=== PATIENT | female | born 1930 | race Caucasian/White ===

== ENCOUNTER → 2016-10-12 | Outpatient (CLI) | payer MEDICARE ==
[~2016-10-12] MED LIST: ATOR20TA42 PO; B-COTAB41 PO; CALC500 PO; DIGO0.12 PO; LORTA5 PO; NIAC500T5 PO; RIVA15 PO; SOTA80TA PO; SULA8.5T PO; VITA500C PO
[2016-10-12 09:21] LABS: HEMATOCRIT 43.1 % (35.0-46.0); MEAN CELL VOLUME 84.3 FL (80.0-100.0); MEAN CORPUSCULAR HEMOGLOBIN 28.1 PG (27.0-34.0); MEAN CORPUSCULAR HGB CONC 33.4 % (32.0-36.0); PLATELET COUNT 230 TH/MM3 (150-450); RED BLOOD COUNT 5.11 MIL/MM3 (4.00-5.30); RED CELL DISTRIBUTION WIDTH 14.2 % (11.6-17.2); REVIEW FLAG FINAL
[2016-10-12 09:42] LABS: ALKALINE PHOSPHATASE 109 U/L (45-117); ALT (GPT) 14 U/L (10-53); ANION GAP 7 MEQ/L (5-15); AST (GOT) 16 U/L (15-37); BICARBONATE 28.8 MEQ/L (21.0-32.0); BLOOD UREA NITROGEN 21 MG/DL (7-18); CHLORIDE 103 MEQ/L (98-107); GLOMERULAR FILTRATION RATE 42 ML/MIN (>89); GLUCOSE,FASTING 112 MG/DL (74-99); HDL CHOLESTEROL 22.8 MG/DL (40.0-60.0); POTASSIUM 4.1 MEQ/L (3.5-5.1); SODIUM (NA) 139 MEQ/L (136-145); TOTAL BILIRUBIN ADULT 0.6 MG/DL (0.2-1.0)
[2016-10-12 09:50] LABS: WESTERGREN SEDIMENTATION RATE 8 mm/hr (0-30)
[2016-10-12 12:19] LABS: RHEUMATOID FACTOR TRIGGER LESS THAN 10.0 IU/ML (0.0-14.9)
[2016-10-12 13:48] LABS: ANA SCREEN POS (NEG)
== END ==
LOC: PLAB 07:05
PROVIDERS: ATTEND Internal Medicine Interventional Cardiology
DX: R53.83 Other fatigue (principal); I11.9 Hypertensive heart disease without heart failure; I71.4 Abdominal aortic aneurysm, without rupture; M79.1 Myalgia
CPT/HCPCS: 36415; 80053; 80061; 85027; 85652; 86038; 86039; 86430

== ENCOUNTER → 2017-08-10 | Outpatient (CLI) | payer MEDICARE ==
[2017-08-10 09:42] LABS: HEMATOCRIT 31.2 % (35.0-46.0); HEMOGLOBIN 10.4 GM/DL (11.6-15.3); MEAN CELL VOLUME 86.6 FL (80.0-100.0); MEAN CORPUSCULAR HGB CONC 33.5 % (32.0-36.0); MEAN PLATELET VOLUME 8.1 FL (7.0-11.0); PLATELET COUNT 272 TH/MM3 (150-450); RED CELL DISTRIBUTION WIDTH 14.6 % (11.6-17.2); WHITE BLOOD COUNT 7.2 TH/MM3 (4.0-11.0)
[2017-08-10 10:10] LABS: BICARBONATE 25.9 MEQ/L (21.0-32.0); BLOOD UREA NITROGEN 18 MG/DL (7-18); CALCIUM 8.2 MG/DL (8.5-10.1); CHLORIDE 107 MEQ/L (98-107); SODIUM (NA) 140 MEQ/L (136-145)
[2017-08-10 10:16] LABS: ALKALINE PHOSPHATASE 96 U/L (45-117); ALT (GPT) 14 U/L (10-53); AST (GOT) 18 U/L (15-37); CHOLESTEROL 149 MG/DL (120-200); CHOLESTEROL/ HDL RATIO 7.26 RATIO; CREATININE 1.25 MG/DL (0.50-1.00); GLOMERULAR FILTRATION RATE 40 ML/MIN (>89); GLUCOSE,FASTING 98 MG/DL (74-99); HDL CHOLESTEROL 20.5 MG/DL (40.0-60.0); TOTAL BILIRUBIN ADULT 0.4 MG/DL (0.2-1.0); TOTAL PROTEIN 7.6 GM/DL (6.4-8.2); TRIGLYCERIDES 499 MG/DL (42-150)
[2017-08-10 10:37] LABS: WESTERGREN SEDIMENTATION RATE 72 mm/hr (0-30)
== END ==
LOC: PLAB 06:53
PROVIDERS: ATTEND Internal Medicine Interventional Cardiology
DX: R53.83 Other fatigue (principal); I48.0 Paroxysmal atrial fibrillation; I11.9 Hypertensive heart disease without heart failure; I49.5 Sick sinus syndrome; R07.9 Chest pain, unspecified; F17.210 Nicotine dependence, cigarettes, uncomplicated
CPT/HCPCS: 36415; 80053; 80061; 85027; 85652

== ENCOUNTER → 2017-08-31 | Outpatient (CLI) | payer MEDICARE ==
[2017-08-31 10:17] LABS: AUTOMATED NEUTROPHIL # 4.4 TH/MM3 (1.8-7.7); BASOPHIL # 0.1 TH/MM3 (0-0.2); BASOPHIL % 0.8 % (0.0-2.0); EOSINOPHIL # 0.2 TH/MM3 (0-0.4); EOSINOPHIL % 2.2 % (0.0-4.0); LYMPH % 32.2 % (9.0-44.0); LYMPHOCYTE # 2.6 TH/MM3 (1.0-4.8); MEAN CELL VOLUME 82.9 FL (80.0-100.0); MEAN CORPUSCULAR HEMOGLOBIN 27.6 PG (27.0-34.0); MEAN CORPUSCULAR HGB CONC 33.3 % (32.0-36.0); MONO % 10.5 % (0.0-8.0); MONOCYTE # 0.9 TH/MM3 (0-0.9); NEUT % 54.3 % (16.0-70.0); PLATELET COUNT 362 TH/MM3 (150-450); RED BLOOD COUNT 3.99 MIL/MM3 (4.00-5.30); RED CELL DISTRIBUTION WIDTH 14.6 % (11.6-17.2); WHITE BLOOD COUNT 8.2 TH/MM3 (4.0-11.0)
[2017-08-31 10:36] LABS: WESTERGREN SEDIMENTATION RATE 49 mm/hr (0-30)
== END ==
LOC: PLAB 06:47
PROVIDERS: ATTEND Family Medicine
DX: D64.9 Anemia, unspecified (principal); R91.8 Other nonspecific abnormal finding of lung field; R53.83 Other fatigue; R10.32 Left lower quadrant pain; K64.4 Residual hemorrhoidal skin tags
CPT/HCPCS: 36415; 85025; 85652

== ENCOUNTER 2018-06-23 11:32 | Inpatient (IN) ==
[2018-06-23 12:14] LABS: Baso # (Auto) 0.1 th/mm3 (0.0-0.2); Baso % (Auto) 0.6 % (0.0-2.0); Eos # (Auto) 0.1 th/mm3 (0.0-0.4); Eos % (Auto) 1.1 % (0.0-4.0); Hemoglobin 13.2 gm/dL (11.6-15.3); Lymph # (Auto) 1.6 th/mm3 (1.0-4.8); Lymph % (Auto) 18.4 % (9.0-44.0); Mean Corpuscular HGB Conc 33.8 % (32.0-36.0); Mean Corpuscular Hemoglobin 28.5 pg (27.0-34.0); Mean Corpuscular Volume 84.2 fL (80.0-100.0); Mean Platelet Volume 8.4 fL (7.0-11.0); Mono % (Auto) 10.9 % (0.0-8.0); Platelet Count 296 th/mm3 (150-450); Red Blood Count 4.63 mil/mm3 (4.00-5.30); Red Cell Distribution Width 17.3 % (11.6-17.2); White Blood Count 8.7 th/mm3 (4.0-11.0)
[2018-06-23 12:24] LABS: INR 1.2 Ratio; Prothrombin Time 11.7 sec (9.8-11.6)
[2018-06-23 12:28] LABS: Activated Partial Thrombo Time 26.7 sec (23.4-31.7)
[2018-06-23 12:31] LABS: Alanine Aminotransferase 28 U/L (10-53); Albumin 2.1 g/dL (3.4-5.0); Anion Gap 5 meq/L (5-15); Blood Urea Nitrogen 14 mg/dL (7-18); Calcium 6.6 mg/dL (8.5-10.1); Carbon Dioxide 22.8 meq/L (21.0-32.0); Chloride 110 meq/L (98-107); Glomerular Filtration Rate 65 mL/min (>89); Glucose,Random 109 mg/dL (74-106); Sodium 138 meq/L (136-145)
--- NOTE | 2018-06-23 12:31 | XR ---
EXAM DATE: 06/23/2018 12:27 PM EST AGE/SEX: 87 years / Female INDICATIONS: Shortness of breath post fall. CLINICAL DATA: This is the patient's initial encounter. Patient reports that signs and symptoms have been present for 2 weeks and indicates a pain score of 5/10. MEDICAL/SURGICAL HISTORY: None. Pacemaker. COMPARISON: [facility], XR CHEST PA AND LAT, 07/21/2015. . FINDINGS: Diffuse interstitial prominence with patchy bilateral lower lobe airspace disease which appears more confluent in the left lower lung zone. There is also a small left-sided pleural effusion. Dual-lead p acemaker in stable position. Cardiomediastinal contours are within normal limits. Remainder of the ex am is unchanged. CONCLUSION: 1. Chronic diffuse interstitial lung disease with superimposed bilateral lower lobe patchy airspace disease and small left pleural effusion. Electronically signed by: Emerson De La O MD 06/23/2018 12:30 PM EST
[2018-06-23 12:33] LABS: Alkaline Phosphatase 80 U/L (45-117); Aspartate Aminotransferase 54 U/L (15-37); Creatine Kinase 132 U/L (26-192); Potassium 4.9 meq/L (3.5-5.1); Total Protein 6.5 g/dL (6.4-8.2)
[2018-06-23 13:00] LABS: Creatine Kinase MB 1.1 ng/mL (0.5-3.6)
[2018-06-23] MEDS ORDERED: Azithromycin Inj 500 MG in Sodium Chlor 0.9% Inj 250 ML IV.SIG ONE (13:34)
[2018-06-23] MEDS ORDERED: Calcium Gluconate Inj 1 GM in Sodium Chlor 0.9% Inj 100 ML IV.SIG ONE (14:00)
--- NOTE | 2018-06-23 15:25 | CT ---
EXAM DATE: 06/23/2018 3:22 PM EST AGE/SEX: 87 years / Female INDICATIONS: Dizziness today. CLINICAL DATA: This is the patient's initial encounter. Patient reports that signs and symptoms have been present for 1 day and indicates a pain score of 0/10. MEDICAL/SURGICAL HISTORY: Chronic obstructive pulmonary disease. None. RADIATION DOSE: 46.51 CTDI (mGy) COMPARISON: [facility], CT BRAIN W/O CONTRAST, 07/26/2012. . TECHNIQUE: CT of the head without contrast. Using automated exposure control and adjustment of the mA and/or kV according to patient size, radiation dose was kept as low as reasonably achievable to ob tain optimal diagnostic quality images. DICOM format image data is available electronically for revi ew and comparison. FINDINGS: Cerebrum: Moderate diffuse cerebral atrophy. The ventricles are normal for degree of atrophy. Small right basal ganglia lacunar infarct. No evidence of midline shift, mass lesion, hemorrhage or acute i nfarction. No extraaxial fluid collections are seen. Posterior Fossa: Mild diffuse cerebellar atrophy. Brainstem is intact. The 4th ventricle is midline. The cerebellopontine angle is unremarkable. Extracranial: The visualized portion of the orbits is intact. Skull: The calvaria is intact. No evidence of skull fracture. CONCLUSION: 1. Senescent changes with remote right basal ganglia lacunar infarct. 2. No acute intracranial abnormality. . Electronically signed by: Emerson De La O MD 06/23/2018 3:24 PM EST
--- NOTE | 2018-06-23 15:35 | CT ---
EXAM DATE: 06/23/2018 3:25 PM EST AGE/SEX: 87 years / Female INDICATIONS: Shortness of breath. CLINICAL DATA: This is the patient's initial encounter. Patient reports that signs and symptoms have been present for 1 day and indicates a pain score of 0/10. MEDICAL/SURGICAL HISTORY: Chronic obstructive pulmonary disease. None. RADIATION DOSE: 6.86 CTDI (mGy) COMPARISON: C, CHEST 1V SINGLE AP, 06/23/2018. . TECHNIQUE: Volumetric scanning was performed using a multi-row detector CT scanner during bolus infu cynthia of 70 ml Omnipaque 350 (iohexol) nonionic water-soluble contrast as a single exam dose. The mariana a was post processed with a variety of visualization algorithms including full volume maximum intensi ty projection and sliding thin slab reformation. Using automated exposure control and adjustment of the mA and/or kV according to patient size, radiation dose was kept as low as reasonably achievable t o obtain optimal diagnostic quality images. DICOM format image data is available electronically for review and comparison. FINDINGS: Pulmonary Arteries: The pulmonary arteries are demonstrated through the proximal segmental level wit hout evidence for intraluminal filling defect to suggest pulmonary artery embolism. More distally, th e pulmonary arteries are suboptimally visualized. Lung: Diffuse interstitial prominence with prominent centrilobular emphysema bilaterally. Airspace c onsolidation in the lower lobes bilaterally more prominently on the left. Pleura: Small right and moderate left pleural effusions. Mediastinum: Cardiomegaly without significant pericardial effusion. Dual-lead pacemaker in place. Co ronary artery calcifications. Subcentimeter mediastinal and hilar nodes.. Osseous Structures: Degenerative changes of the thoracic spine. Other: Visulaized upper abdomen is unremarkable. CONCLUSION: 1. No evidence for pulmonary artery embolism through the proximal segmental level. More distal segme ntal and subsegmental branches are suboptimally visualized. 2. Chronic interstitial lung disease with prominent centrilobular emphysema. 3. Small right and moderate left pleural effusions with associated airspace consolidation in the low er lobes. This is somewhat more confluent in the left lower lobe. Consider aspiration in the appropri ate clinical setting. 4. Cardiomegaly. 5. Coronary artery calcifications. Electronically signed by: Emerson De La O MD 06/23/2018 3:34 PM EST
--- NOTE | 2018-06-23 16:35 | ED ---
HPI General Chief complaint: Shortness of Breath/Dyspnea Stated complaint: SOB Time Seen by Provider: 06/23/18 11:51 Source: patient Mode of arrival: EMS Limitations: no limitations History of Present Illness HPI narrative: Patient is an 87 year old female who comes in complaining of shortness of breath. She drove here from [place] last week and has been having shortness of breath since then. She does have a history of COPD, but does not wear oxygen at home. She has been increasingly short of breath and had some dizziness. She fell on Monday due to the dizziness and has had pain to her left ribs. She has had some cough, she denies nausea or vomiting. She denies any fevers. Chest pain. She does have a history of blood clots, she does take Xarelto. She reports compliance with her medications. She says that taking deep breaths hurts her left lateral ribs. Severity is moderate. Related Data Home Medications Medication Instructions Recorded Confirmed atorvastatin 20 mg PO DAILY 06/23/18 06/23/18 digoxin 0.125 mg PO EVERY OTHER DAY 06/23/18 06/23/18 latanoprost 1 drp OPHTHALMIC (EYE) QPM 06/23/18 06/23/18 nisoldipine [Sular] 8.5 mg PO DAILY 06/23/18 06/23/18 nisoldipine [Sular] 17 mg PO DAILY 06/23/18 06/23/18 rivaroxaban [Xarelto] 15 mg PO QPM 06/23/18 06/23/18 sotalol 80 mg PO Q12H 06/23/18 06/23/18 Allergies Allergy/AdvReac Type Severity Reaction Status Date / Time ciprofloxacin AdvReac Unknown NAUSEA Verified 06/23/18 14:20 MRI PRECAUTION AdvReac Severe PACEMAKER Uncoded 10/11/14 14:29 Review of Systems ROS: all other systems reviewed are negative Constitutional Denies chills and Denies fever(s) ENT Reports dizziness Cardiovascular Reports dyspnea Respiratory Reports cough and Reports dyspnea Gastrointestinal Denies nausea and Denies vomiting Musculoskeletal Denies myalgias and Denies arthralgias Integumentary/Breasts Denies sores and Denies wounds Neurologic Denies focal weakness and Denies numbness PMFSH Medical History Medical History COPD (chronic obstructive pulmonary disease) (Acute) History of pulmonary embolism (Acute) Hypertension (Acute) Family History Family History Other Osteoarthritis Social History Social History Smoking Status: Former smoker How Often Do You Have a Drink Containing Alcohol: Unable to Obtain Recent Travel in [facility] within the Last 8 Weeks: No Recent Out of Country Travel within the Last 8 Weeks: No Immunization History Tetanus Immunization: Unsure Exam Narrative Exam Narrative: GENERAL: Awake and alert, in mild respiratory distress. SKIN: Focused skin assessment warm/dry. HEAD: Atraumatic. Normocephalic. EYES: Pupils equal and round. No scleral icterus. No injection or drainage. ENT: No nasal bleeding or discharge. Mucous membranes pink and moist. NECK: Trachea midline. No JVD. CARDIOVASCULAR: Regular rate and rhythm. No murmur appreciated. Tender to palpation of the left lateral chest wall. RESPIRATORY: No accessory muscle use. Crackles at both lung bases. Breath sounds equal bilaterally. GASTROINTESTINAL: Abdomen soft, non-tender, nondistended. MUSCULOSKELETAL: No obvious deformities. No clubbing. No cyanosis. 1+ edema of lower extremities. NEUROLOGICAL: Awake and alert. No obvious cranial nerve deficits. Motor grossly within normal limits. Normal speech. PSYCHIATRIC: Appropriate mood and affect; insight and judgment normal. Course Initial Documented Vital Signs Temperature 98.1 F 06/23/18 11:37 Pulse Rate 89 06/23/18 11:37 Respiratory Rate 28 H 06/23/18 11:37 Blood Pressure 182/83 H 06/23/18 11:37 Pulse Oximetry 94 L 06/23/18 11:37 Last Documented Vital Signs Temperature 98.1 F 06/23/18 11:37 Pulse Rate 78 06/23/18 17:01 Respiratory Rate 25 H 06/23/18 17:01 Blood Pressure 159/78 H 06/23/18 17:01 Pulse Oximetry 94 L 06/23/18 17:01 Medical Decision Making MDM Narrative Medical decision making narrative: Patient is an 87-year-old female comes in complaining of shortness of breath. Exam was of both lung bases, tenderness to the chest wall. Patient has an oxygen saturation of 85% on arrival on room air. IV established, labs sent. Patient given 1 DuoNeb. She did receive a DuoNeb and albuterol treatment as well as of 125 mg of Solu-Medrol by EMS prior to arrival. CTA of the chest performed shows bilateral pleural effusions with a consolidation on the left. Given Rocephin and azithromycin as well as a dose of Lasix. Patient's oxygen saturation improved on nasal cannula. She will be admitted for further management. Medical Screen Exam Complete: Yes Emergency Medical Condition: Yes Differential Diagnosis Differential Diagnosis: COPD exacerbation versus pneumonia versus rib fracture versus pneumothorax versus PE Medical Records Medical records reviewed: Yes I reviewed the patient's medical records. Lab Data Lab results reviewed: Yes I reviewed the patient's lab results. Result diagrams: 06/23/18 12:00 06/23/18 12:00 Lab Results 06/23/18 06/23/18 06/23/18 Range/Units 12:00 12:00 12:00 WBC 8.7 (4.0-11.0) th/mm3 RBC 4.63 (4.00-5.30) mil/mm3 Hgb 13.2 (11.6-15.3) gm/dL Hct 39.0 (35.0-46.0) % MCV 84.2 (80.0-100.0) fL MCH 28.5 (27.0-34.0) pg MCHC 33.8 (32.0-36.0) % RDW 17.3 H (11.6-17.2) % Plt Count 296 (150-450) th/mm3 MPV 8.4 (7.0-11.0) fL Neut % (Auto) 69.0 (16.0-70.0) % Lymph % (Auto) 18.4 (9.0-44.0) % [place] % (Auto) 10.9 H (0.0-8.0) % Eos % (Auto) 1.1 (0.0-4.0) % Baso % (Auto) 0.6 (0.0-2.0) % Neut # (Auto) 6.0 (1.8-7.7) th/mm3 Lymph # (Auto) 1.6 (1.0-4.8) th/mm3 [place] # (Auto) 1.0 H (0.0-0.9) th/mm3 Eos # (Auto) 0.1 (0.0-0.4) th/mm3 Baso # (Auto) 0.1 (0.0-0.2) th/mm3 WBC Differential . Differential Comment Auto diff final PT 11.7 H (9.8-11.6) sec INR 1.2 Ratio APTT 26.7 (23.4-31.7) sec Sodium 138 (136-145) meq/L Potassium 4.9 (3.5-5.1) meq/L Chloride 110 H (98-107) meq/L Carbon Dioxide 22.8 (21.0-32.0) meq/L Anion Gap 5 (5-15) meq/L BUN 14 (7-18) mg/dL Creatinine 0.83 (0.50-1.00) mg/dL Estimated GFR 65 L (>89) mL/min Random Glucose 109 H (74-106) mg/dL Calcium 6.6 L* (8.5-10.1) mg/dL Prot Corrected Calcium 6.9 L* (8.5-10.1) mg/dL Total Bilirubin 0.4 (0.2-1.0) mg/dL AST 54 H (15-37) U/L ALT 28 (10-53) U/L Alkaline Phosphatase 80 (45-117) U/L Total Creatine Kinase 132 (26-192) U/L CK-MB (CK-2) 1.1 (0.5-3.6) ng/mL Troponin I Less than 0.02 L (0.02-0.05) ng/mL B-Natriuretic Peptide (0-100) pg/mL Total Protein 6.5 (6.4-8.2) g/dL Albumin 2.1 L (3.4-5.0) g/dL 06/23/18 Range/Units 12:00 WBC (4.0-11.0) th/mm3 RBC (4.00-5.30) mil/mm3 Hgb (11.6-15.3) gm/dL Hct (35.0-46.0) % MCV (80.0-100.0) fL MCH (27.0-34.0) pg MCHC (32.0-36.0) % RDW (11.6-17.2) % Plt Count (150-450) th/mm3 MPV (7.0-11.0) fL Neut % (Auto) (16.0-70.0) % Lymph % (Auto) (9.0-44.0) % [place] % (Auto) (0.0-8.0) % Eos % (Auto) (0.0-4.0) % Baso % (Auto) (0.0-2.0) % Neut # (Auto) (1.8-7.7) th/mm3 Lymph # (Auto) (1.0-4.8) th/mm3 [place] # (Auto) (0.0-0.9) th/mm3 Eos # (Auto) (0.0-0.4) th/mm3 Baso # (Auto) (0.0-0.2) th/mm3 WBC Differential Differential Comment PT (9.8-11.6) sec INR Ratio APTT (23.4-31.7) sec Sodium (136-145) meq/L Potassium (3.5-5.1) meq/L Chloride (98-107) meq/L Carbon Dioxide (21.0-32.0) meq/L Anion Gap (5-15) meq/L BUN (7-18) mg/dL Creatinine (0.50-1.00) mg/dL Estimated GFR (>89) mL/min Random Glucose (74-106) mg/dL Calcium (8.5-10.1) mg/dL Prot Corrected Calcium (8.5-10.1) mg/dL Total Bilirubin (0.2-1.0) mg/dL AST (15-37) U/L ALT (10-53) U/L Alkaline Phosphatase (45-117) U/L Total Creatine Kinase (26-192) U/L CK-MB (CK-2) (0.5-3.6) ng/mL Troponin I (0.02-0.05) ng/mL B-Natriuretic Peptide 468 H (0-100) pg/mL Total Protein (6.4-8.2) g/dL Albumin (3.4-5.0) g/dL Imaging Data Radiologist's impression: Chest CTA 06/23/18 11:52 CONCLUSION: 1. No evidence for pulmonary artery embolism through the proximal segmental level. More distal segmental and subsegmental branches are suboptimally visualized. 2. Chronic interstitial lung disease with prominent centrilobular emphysema. 3. Small right and moderate left pleural effusions with associated airspace consolidation in the lower lobes. This is somewhat more confluent in the left lower lobe. Consider aspiration in the appropriate clinical setting. 4. Cardiomegaly. 5. Coronary artery calcifications. Chest X-Ray 06/23/18 11:52 CONCLUSION: 1. Chronic diffuse interstitial lung disease with superimposed bilateral lower lobe patchy airspace disease and small left pleural effusion. Head CT 06/23/18 11:52 CONCLUSION: 1. Senescent changes with remote right basal ganglia lacunar infarct. 2. No acute intracranial abnormality. . ECG Data EKG Prior to Arrival: No Attestation: I personally reviewed and interpreted this ECG as follows: Discharge Plan Discharge Disposition Patient Disposition: 30 Still Patient Discharge Condition Condition: Stable Discharge Details Diagnosis: Community acquired pneumonia, Pleural effusion, Hypoxia Physicians Team ED Provider: Bailey Quintero Primary Care Provider: Lia Funes Attending Provider: Luke Fierro Discharge Interventions Interventions: Vital Signs Last Done: 06/23/18 17:01 Status ED Status: Admitted Patient
[2018-06-23] MEDS: Sod Chloride 0.9% Inj 1,000 ML IV.CONT SCH (17:37)
[2018-06-23] MEDS ORDERED: Artificial Tears Opth Drops 15 ML Bottle EACH EYE PRN (17:44)
--- NOTE | 2018-06-23 17:55 | P.HPIM ---
History of Present Illness Primary Care Physician: Lia Funes MD History of Present Illness: Mrs. Cochran is an 87-year-old female. She comes in the hospital secondary to respiratory distress. This is been a gradual onset over the past week. [place] Prior history of PE is present but CTA shows no evidence of clot. She does report [place] she had bronchitis and was prescribed cefuroxime which she has been taking. Tonight she has evidence of bilateral lower lobe consolidation suggestive of pneumonia. Additionally she has a left-sided pleural effusion which is moderate and a small right pleural effusion. No evidence of lung masses. Hypoxia was present on arrival but with oxygen she is maintaining her oxygen saturations in the 90s. No other complaints. Inpatient Certification: I certify that the inpatient services were ordered in accordance with Medicare regulations governing the order. This includes certification that hospital inpatient services are reasonable and necessary and in the case of services not specified as inpatient-only under 42 CFR 419.22(n), that they are appropriately provided as inpatient services in accordance to with the 2-midnight benchmark under 43 CFR 412.3(e) Estimated Total Length of Stay (Days): 3 Plans for Post Hospital Care: Home Review of Systems Constitutional: No fevers, no chills no night sweats, no fatigue, no weakness Eyes: No eye pain, no blurry vision, no loss of vision ENT: No sore throat, no ear pain, no rhinorrhea Cardiovascular: No chest pain, no tachycardia, no palpitations, no syncope Respiratory: No wheezing, no cough, shortness of breath Gastrointestinal: No abdominal pain, no black tarry stools, no bright red blood per rectum, no vomiting, no diarrhea Musculoskeletal: No joint pain, no muscle cramps, no stiffness Integumentary: No rash, no ulcers, no drainage Neurologic: No sensory loss, no loss of motor function, no dizziness Psychiatric: No behavioral changes, no hallucinations, no suicidal ideations [facility] - History History Provided By: Patient, Medical Record - Medical History Medical History: Medical History (Last Updated 06/23/18 @ 17:50 by Luke Fierro MD) COPD (chronic obstructive pulmonary disease) History of pulmonary embolism Hypertension - Family History Family History: Family History (Last Updated 06/23/18 @ 17:51 by Luke Fierro MD) Other Osteoarthritis - Tobacco History Smoking Status: Former smoker - Alcohol History How Often Do You Have a Drink Containing Alcohol: Unable to Obtain - Travel History Recent Travel in the [place] Within the Last 8 Weeks: No Recent Travel Out of the Country Within the Last 8 Weeks: No - Immunization History Tetanus Immunization: Unsure Medications and Allergies Active Medications: Active Medications Acetaminophen (Tylenol) 650 mg PO Q4H PRN PRN Reason: Temp > 100.4 Hydrocodone Bitart/Acetaminophen ([place] 10/325) 1 tab PO Q4H PRN PRN Reason: Pain 7 to 10 Hydrocodone Bitart/Acetaminophen ([place] 5/325) 1 tab PO Q4H PRN PRN Reason: Pain 3 to 6 Al Hydroxide/Mg Hydroxide (Milk Of Magnpenelope Liq) 30 ml PO Q12H PRN PRN Reason: Mild Constipation Artificial Tears (Tears Naturale Opth Drops) 1 drop EACH EYE Q4H PRN PRN Reason: Dry Eyes Atorvastatin Calcium (Lipitor) 20 mg PO DAILY [facility] Digoxin (Lanoxin) 125 mcg PO EVERY OTHER DAY [facility] Azithromycin 250 mg/ Sodium (Chloride) 250 mls @ 250 mls/hr IV.SIG Q24H [facility] Ceftriaxone Sodium 1,000 mg/ (Sodium Chloride) 100 mls @ 200 mls/hr IV.SIG Q24H [facility] Sodium Chloride (Ns Inj) 1,000 mls @ 75 mls/hr IV.CONT .[id number] [facility] Last Admin: 06/23/18 17:37 Dose: Not Given Lactobacillus Acidophilus (Lactinex) 1 tab PO TID [facility] Latanoprost (Xalatan 0.005% Opth Drops) drop EACH EYE QPM [facility] Non-Formulary Medication (Nisoldipine [Sular]) 8.5 mg PO DAILY@1100 [facility] Non-Formulary Medication (Nisoldipine [Sular]) 17 mg PO DAILY@0800,2000 [facility] Ondansetron HCl (Zofran Inj) 4 mg IV.PUSH Q6H PRN PRN Reason: NAUSEA OR VOMITING Rivaroxaban (Xarelto) 15 mg PO QPM [facility] Sotalol HCl (Betapace) 80 mg PO Q12H [facility] Allergies Allergy/AdvReac Type Severity Reaction Status Date / Time ciprofloxacin AdvReac Unknown NAUSEA Verified 06/23/18 14:20 MRI PRECAUTION AdvReac Severe PACEMAKER Uncoded 10/11/14 14:29 Home Medications Medication Instructions Recorded Confirmed Type atorvastatin 20 mg PO DAILY 06/23/18 06/23/18 History digoxin 0.125 mg PO EVERY OTHER DAY 06/23/18 06/23/18 History latanoprost 1 drp OPHTHALMIC (EYE) QPM 06/23/18 06/23/18 History nisoldipine [Sular] 8.5 mg PO DAILY 06/23/18 06/23/18 History nisoldipine [Sular] 17 mg PO DAILY 06/23/18 06/23/18 History rivaroxaban [Xarelto] 15 mg PO QPM 06/23/18 06/23/18 History sotalol 80 mg PO Q12H 06/23/18 06/23/18 History Exam Vital signs: Vital Signs 06/23/18 11:37 06/23/18 12:14 06/23/18 12:28 Temperature 98.1 F Pulse Rate 89 82 73 Respiratory Rate 28 H 34 H 18 Blood Pressure 182/83 H 164/72 H 164/77 H Pulse Oximetry 94 L 94 L 94 L 06/23/18 13:19 06/23/18 14:23 06/23/18 17:01 Temperature Pulse Rate 73 71 78 Respiratory Rate 25 H 25 H Blood Pressure 159/78 H Pulse Oximetry 95 94 L 94 L Intake & Output 06/22/18 06/23/18 06/23/18 18:59 06:59 18:59 Intake Total 460 / 460 Balance 460 / 460 Weight 51.71 kg Intake: IV 460 / 460 Azithromycin Inj 500 MG In NS 250 / 250 Inj 250 ML @ 250 mls/hr IV.SIG ONCE ONE Rx#:[id number] Calcium Gluconate Inj 1 GM In 110 / 110 NS Inj 100 ML @ 110 mls/hr IV. SIG ONCE ONE Rx#:[id number] Rocephin Inj 1,000 MG In NS Inj 100 / 100 100 ML @ 200 mls/hr IV.SIG ONCE ONE Rx#:[id number] Narrative: GENERAL: NAD, A&Ox3 HEAD: Normocephalic. NECK: Supple, trachea midline. No lymphadenopathy. EYES: No scleral icterus. No injection or drainage. CARDIOVASCULAR: Regular rate and rhythm without murmurs, gallops, or rubs. RESPIRATORY: Breath sounds equal bilaterally. No accessory muscle use. Crackles at bases bilaterally. GASTROINTESTINAL: Abdomen soft, non-tender, nondistended. MUSCULOSKELETAL: No cyanosis, or edema. SKIN: Warm and dry. NEURO: No focal neurological deficits. Results - Labs CBC & Chem 7: 06/23/18 12:00 06/23/18 12:00 Labs: Short CBC 06/23/18 Range/Units 12:00 WBC 8.7 (4.0-11.0) th/mm3 Hgb 13.2 (11.6-15.3) gm/dL Hct 39.0 (35.0-46.0) % Plt Count 296 (150-450) th/mm3 BMP 06/23/18 12:00 Sodium 138 Potassium 4.9 Chloride 110 H Carbon Dioxide 22.8 BUN 14 Creatinine 0.83 Calcium 6.6 L* Cardiac Enzymes 06/23/18 Range/Units 12:00 Total Creatine Kinase 132 (26-192) U/L CK-MB (CK-2) 1.1 (0.5-3.6) ng/mL Troponin I Less than 0.02 L (0.02-0.05) ng/mL Liver Function 06/23/18 Range/Units 12:00 Total Bilirubin 0.4 (0.2-1.0) mg/dL AST 54 H (15-37) U/L ALT 28 (10-53) U/L Alkaline Phosphatase 80 (45-117) U/L Albumin 2.1 L (3.4-5.0) g/dL - Imaging Impressions Chest CTA 06/23/18 11:52 CONCLUSION: 1. No evidence for pulmonary artery embolism through the proximal segmental level. More distal segmental and subsegmental branches are suboptimally visualized. 2. Chronic interstitial lung disease with prominent centrilobular emphysema. 3. Small right and moderate left pleural effusions with associated airspace consolidation in the lower lobes. This is somewhat more confluent in the left lower lobe. Consider aspiration in the appropriate clinical setting. 4. Cardiomegaly. 5. Coronary artery calcifications. Chest X-Ray 06/23/18 11:52 CONCLUSION: 1. Chronic diffuse interstitial lung disease with superimposed bilateral lower lobe patchy airspace disease and small left pleural effusion. Head CT 06/23/18 11:52 CONCLUSION: 1. Senescent changes with remote right basal ganglia lacunar infarct. 2. No acute intracranial abnormality. . Caprini VTE Risk Assessment Caprini VTE Risk Assessment: Moderate/High Risk (score >= 2) Caprini Risk Assessment Model: Point Value = 1 Point Value = 2 Point Value = 3 Point Value = 5 Age 41-60 Minor surgery BMI > 25 kg/m2 Swollen legs Varicose veins or History of unexplained or recurrent spontaneous Oral contraceptives or hormone replacement Sepsis (< 1 month) Serious lung disease, including pneumonia (< 1 month) Abnormal pulmonary function Acute myocardial infarction Congestive heart failure (< 1 month) History of inflammatory bowel disease Medical patient at bed rest Age 61-74 Arthroscopic surgery Major open surgery (> 45 min) Laparoscopic surgery (> 45 min) Malignancy Confined to bed (> 72 hours) Immobilizing plaster cast Central venous access Age >= 75 History of VTE Family history of VTE Factor V Leiden Prothrombin [id number] Lupus anticoagulant Anticardiolipin antibodies Elevated serum homocysteine Heparin-induced thrombocytopenia Other congenital or acquired thrombophilia Stroke (< 1 month) Elective arthroplasty Hip, pelvis, or leg fracture Acute spinal cord injury (< 1 month) Prophylaxis Regimen: Total Risk Factor Score Risk Level Prophylaxis Regimen 0-1 Low Early ambulation 2 Moderate Order ONE of the following: *Sequential Compression Device (SCD) *Heparin 5000 units SQ BID 3-4 Higher Order ONE of the following medications: *Heparin 5000 units SQ TID *Enoxaparin/Lovenox 40 mg SQ daily (WT < 150 kg, CrCl > 30 mL/min) *Enoxaparin/Lovenox 30 mg SQ daily (WT < 150 kg, CrCl > 10-29 mL/min) *Enoxaparin/Lovenox 30 mg SQ BID (WT < 150 kg, CrCl > 30 mL/min) AND/OR *Sequential Compression Device (SCD) 5 or more Highest Order ONE of the following medications: *Heparin 5000 units SQ TID (Preferred with Epidurals) *Enoxaparin/Lovenox 40 mg SQ daily (WT < 150 kg, CrCl > 30 mL/min) *Enoxaparin/Lovenox 30 mg SQ daily (WT < 150 kg, CrCl > 10-29 mL/min) *Enoxaparin/Lovenox 30 mg SQ BID (WT < 150 kg, CrCl > 30 mL/min) AND *Sequential Compression Device (SCD) Assessment and Plan - Plan 87-year-old female admitted secondary to hypoxia with bilateral lower lobe pneumonia Hypoxia Community-acquired pneumonia Bilateral pneumonia Outpatient treatment failure Discontinue cefuroxime Patient has allergy to Levaquin Treat with azithromycin and Rocephin Follow clinically for improvement Oxygen supplementation as needed and wean as tolerated COPD No exacerbation Continue baseline management Follow clinically Hypertension Continue baseline treatment Follow blood pressures Adjust treatments as needed Glaucoma Continue baseline eyedrops Hyperlipidemia Continue present treatment Follow as an outpatient History of pulmonary embolism Continue baseline treatment of Xarelto DVT prophylaxis Xarelto
[2018-06-23] MEDS: Rivaroxaban 15 MG Tablet PO SCH (18:32)
[2018-06-23] MEDS: Latanoprost 0.005% Opth Drops 2.5 ML Bottle EACH EYE SCH (19:08)
[2018-06-23] MEDS: Lactobacillus Acidophilus/L. Spores Tablet PO SCH (19:08)
[2018-06-23] MEDS ORDERED: NISOLDIPINE 17 MG PO SCH (20:00)
[2018-06-24] MEDS: Acetaminophen 325 MG Tablet PO PRN ×2 (00:10→17:13)
[2018-06-24] MEDS: RESP: Albuterol Concentrated 2.5 MG/0.5 ML Neb NEB PRN ×2 (00:12→15:15)
[2018-06-24] MEDS: Sod Chloride 0.9% Inj 1,000 ML IV.CONT SCH (06:35)
[2018-06-24 07:04] LABS: Baso % (Auto) 0.2 % (0.0-2.0); Hematocrit 36.6 % (35.0-46.0); Lymph # (Auto) 1.4 th/mm3 (1.0-4.8); Lymph % (Auto) 19.4 % (9.0-44.0); Mean Corpuscular HGB Conc 32.7 % (32.0-36.0); Mean Corpuscular Hemoglobin 27.9 pg (27.0-34.0); Mean Corpuscular Volume 85.4 fL (80.0-100.0); Mean Platelet Volume 8.5 fL (7.0-11.0); Mono # (Auto) 0.6 th/mm3 (0.0-0.9); Mono % (Auto) 8.8 % (0.0-8.0); Neut % (Auto) 71.6 % (16.0-70.0); Platelet Count 249 th/mm3 (150-450); Red Blood Count 4.28 mil/mm3 (4.00-5.30); Red Cell Distribution Width 17.1 % (11.6-17.2)
[2018-06-24 07:28] LABS: Anion Gap 7 meq/L (5-15); Blood Urea Nitrogen 20 mg/dL (7-18); Carbon Dioxide 24.6 meq/L (21.0-32.0); Chloride 108 meq/L (98-107); Glomerular Filtration Rate 50 mL/min (>89); Glucose,Random 104 mg/dL (74-106); Potassium 3.7 meq/L (3.5-5.1); Sodium 140 meq/L (136-145)
[2018-06-24 07:29] LABS: Alanine Aminotransferase 30 U/L (10-53); Albumin 2.4 g/dL (3.4-5.0); Alkaline Phosphatase 92 U/L (45-117); Aspartate Aminotransferase 23 U/L (15-37); Calcium 7.8 mg/dL (8.5-10.1)
[2018-06-24] MEDS: Digoxin 125 MCG Tablet PO SCH (08:30)
[2018-06-24] MEDS: Lactobacillus Acidophilus/L. Spores Tablet PO SCH ×2 (09:45→15:51)
[2018-06-24] MEDS ORDERED: NISOLDIPINE 8.5 MG PO SCH (11:00)
--- NOTE | 2018-06-24 15:32 | P.PNIM ---
Subjective Interval history: Patient reports she is feeling better overall and inquired about when she will go home. She has a wet cough. Physical Exam Vital signs: Vital Signs 06/23/18 17:01 06/23/18 20:00 06/23/18 20:20 Temperature 97.8 F Pulse Rate 78 84 Respiratory Rate 25 H 21 Blood Pressure 159/78 H 140/72 Pulse Oximetry 94 L 92 L 94 L 06/24/18 00:00 06/24/18 00:17 06/24/18 04:00 Temperature 97.7 F 97.9 F Pulse Rate 82 75 89 Respiratory Rate 20 16 19 Blood Pressure 156/75 H 147/68 H Pulse Oximetry 92 L 90 L 90 L 06/24/18 08:00 06/24/18 12:00 06/24/18 15:18 Temperature 97.8 F 98.0 F Pulse Rate 79 76 Respiratory Rate 20 20 Blood Pressure 138/75 148/74 H Pulse Oximetry 95 95 97 06/24/18 15:19 Temperature Pulse Rate 78 Respiratory Rate 18 Blood Pressure Pulse Oximetry Intake & Output 06/23/18 06/24/18 06/24/18 18:59 06:59 18:59 Intake Total 460 / 460 Output Total 1800 / 1800 Balance 460 / 460 -1800 / -1800 Weight 51.71 kg 50.4 kg Intake: IV 460 / 460 Azithromycin Inj 500 MG In NS 250 / 250 Inj 250 ML @ 250 mls/hr IV.SIG ONCE ONE Rx#:[id number] Calcium Gluconate Inj 1 GM In 110 / 110 NS Inj 100 ML @ 110 mls/hr IV. SIG ONCE ONE Rx#:[id number] Rocephin Inj 1,000 MG In NS Inj 100 / 100 100 ML @ 200 mls/hr IV.SIG ONCE ONE Rx#:[id number] Output: Urine 1800 / 1800 Other: # Voids 3 Narrative: GENERAL: Elderly female in no acute distress. CARDIOVASCULAR: Regular rate and rhythm without murmurs, gallops, or rubs. RESPIRATORY: Wet cough. Breath sounds equal bilaterally. No accessory muscle use. Crackles at bases bilaterally. GASTROINTESTINAL: Abdomen soft, non-tender, nondistended. NEURO: No focal neurological deficits. Results - Labs CBC & Chem 7: 06/24/18 04:57 06/24/18 04:57 Laboratory Results - last 24 hr 06/24/18 06/24/18 04:57 04:57 WBC 7.0 RBC 4.28 Hgb 12.0 Hct 36.6 MCV 85.4 MCH 27.9 MCHC 32.7 RDW 17.1 Plt Count 249 MPV 8.5 Neut % (Auto) 71.6 H Lymph % (Auto) 19.4 Mccreary % (Auto) 8.8 H Eos % (Auto) 0.0 Baso % (Auto) 0.2 Neut # (Auto) 5.0 Lymph # (Auto) 1.4 Mccreary # (Auto) 0.6 Eos # (Auto) 0.0 Baso # (Auto) 0.0 WBC Differential . Differential Comment Auto diff final Sodium 140 Potassium 3.7 D Chloride 108 H Carbon Dioxide 24.6 Anion Gap 7 BUN 20 H Creatinine 1.04 H Estimated GFR 50 L Random Glucose 104 Calcium 7.8 L D Total Bilirubin 0.3 AST 23 ALT 30 Alkaline Phosphatase 92 Total Protein 7.0 Albumin 2.4 L - Imaging Impressions Chest CTA 06/23/18 11:52 CONCLUSION: 1. No evidence for pulmonary artery embolism through the proximal segmental level. More distal segmental and subsegmental branches are suboptimally visualized. 2. Chronic interstitial lung disease with prominent centrilobular emphysema. 3. Small right and moderate left pleural effusions with associated airspace consolidation in the lower lobes. This is somewhat more confluent in the left lower lobe. Consider aspiration in the appropriate clinical setting. 4. Cardiomegaly. 5. Coronary artery calcifications. Assessment and Plan - Plan 87-year-old female admitted secondary to hypoxia with bilateral lower lobe pneumonia. Patient had a recent fall and bruised a rib cage which probably contributed to the development of pneumonia. Per discussion with her daughter at bedside, she also has a known left lower lung lesion that was active on PET scan. Hypoxia Community-acquired pneumonia in a patient with known COPD Bilateral pneumonia Outpatient treatment failure Bilateral small pleural effusion discussed with daughter who denies any history of heart failure. Discontinued cefuroxime Patient has allergy to Levaquin Treat with azithromycin and Rocephin Follow clinically for improvement Oxygen supplementation as needed and wean as tolerated Incentive spirometry. We will give a small dose of IV Lasix and obtain 2D echocardiogram. Hypertension Continue baseline treatment Follow blood pressures Adjust treatments as needed Glaucoma Continue baseline eyedrops Hyperlipidemia Continue present treatment Follow as an outpatient History of pulmonary embolism Continue baseline treatment of Xarelto DVT prophylaxis Xarelto Discharge Planning: Pending clinical improvement. Likely 1-2 more days. May need home oxygen.
[2018-06-24] MEDS: Azithromycin Inj 250 MG in Sodium Chlor 0.9% Inj 250 ML IV.SIG SCH (15:52)
[2018-06-24] MEDS: Latanoprost 0.005% Opth Drops 2.5 ML Bottle EACH EYE SCH (17:32)
[2018-06-24] MEDS: Rivaroxaban 15 MG Tablet PO SCH (17:32)
[2018-06-25] MEDS: Acetaminophen 325 MG Tablet PO PRN ×3 (00:55→22:31)
[2018-06-25 07:11] LABS: Hematocrit 37.7 % (35.0-46.0); Hemoglobin 12.1 gm/dL (11.6-15.3); Mean Corpuscular HGB Conc 32.1 % (32.0-36.0); Mean Corpuscular Hemoglobin 27.5 pg (27.0-34.0); Mean Corpuscular Volume 85.6 fL (80.0-100.0); Mean Platelet Volume 8.1 fL (7.0-11.0); Platelet Count 260 th/mm3 (150-450); Red Cell Distribution Width 17.5 % (11.6-17.2); White Blood Count 7.1 th/mm3 (4.0-11.0)
[2018-06-25 07:27] LABS: Calcium 7.6 mg/dL (8.5-10.1); Carbon Dioxide 26.3 meq/L (21.0-32.0); Potassium 3.6 meq/L (3.5-5.1)
[2018-06-25] MEDS: Lactobacillus Acidophilus/L. Spores Tablet PO SCH ×3 (09:45→17:56)
--- NOTE | 2018-06-25 14:54 | P.PNIM ---
Subjective Interval history: Patient reports she is feeling a little better today. Still has a wet cough and requiring oxygen. Physical Exam Vital signs: Vital Signs 06/24/18 15:18 06/24/18 15:19 06/24/18 16:00 Temperature 98.0 F Pulse Rate 78 90 Respiratory Rate 18 20 Blood Pressure 147/69 H Pulse Oximetry 97 95 06/24/18 20:00 06/24/18 20:01 06/25/18 00:00 Temperature 98.0 F 97.8 F Pulse Rate 74 79 Respiratory Rate 19 18 16 Blood Pressure 160/77 H 135/65 Pulse Oximetry 95 94 L 06/25/18 02:36 06/25/18 04:00 06/25/18 08:00 Temperature 97.6 F 98.2 F Pulse Rate 82 72 Respiratory Rate 18 20 18 Blood Pressure 152/82 H 162/74 H Pulse Oximetry 91 L 95 06/25/18 08:02 06/25/18 11:17 06/25/18 12:00 Temperature 98.1 F Pulse Rate 91 H 77 77 Respiratory Rate 20 20 18 Blood Pressure 139/62 Pulse Oximetry 90 L Intake & Output 06/24/18 06/25/18 06/25/18 18:59 06:59 18:59 Intake Total 350 / 350 Balance 350 / 350 Weight 59.2 kg Intake: IV 350 / 350 Azithromycin Inj 250 MG In NS 250 / 250 Inj 250 ML @ 250 mls/hr IV.SIG Q24H [facility] Rx#:[id number] Rocephin Inj 1,000 MG In NS Inj 100 / 100 100 ML @ 200 mls/hr IV.SIG Q24H [facility] Rx#:[id number] Other: # Voids 3 3 Date of Last Bowel Movement 06/23/18 06/23/18 Narrative: GENERAL: Elderly female in no acute distress. CARDIOVASCULAR: Regular rate and rhythm without murmurs, gallops, or rubs. RESPIRATORY: Wet cough. Breath sounds equal bilaterally. No accessory muscle use. Faint rhonchi and crackles at bases bilaterally. GASTROINTESTINAL: Abdomen soft, non-tender, nondistended. NEURO: No focal neurological deficits. Results - Labs CBC & Chem 7: 06/25/18 06:33 06/25/18 06:33 Laboratory Results - last 24 hr 06/25/18 06/25/18 06:33 06:33 WBC 7.1 RBC 4.40 Hgb 12.1 Hct 37.7 MCV 85.6 MCH 27.5 MCHC 32.1 RDW 17.5 H Plt Count 260 MPV 8.1 Sodium 142 Potassium 3.6 Chloride 109 H Carbon Dioxide 26.3 Anion Gap 7 BUN 21 H Creatinine 0.97 Estimated GFR 54 L Random Glucose 88 Calcium 7.6 L Assessment and Plan - Plan 87-year-old female admitted secondary to hypoxia with bilateral lower lobe pneumonia. Patient had a recent fall and bruised a rib cage which probably contributed to the development of pneumonia. Per discussion with her daughter at bedside, she also has a known left lower lung lesion that was active on PET scan. Hypoxia Community-acquired pneumonia in a patient with known COPD Bilateral pneumonia Outpatient treatment failure Bilateral small pleural effusion discussed with daughter who denies any history of heart failure. Discontinued cefuroxime Patient has allergy to Levaquin She has been receiving azithromycin and Rocephin. Transition to doxycycline, also has some anti-inflammatory properties. Follow clinically for improvement Oxygen supplementation as needed and wean as tolerated Incentive spirometry. She previously received a small dose of IV Lasix. 2D echocardiogram pending. Will obtain home oxygen walk test Hypertension Continue baseline treatment Follow blood pressures Adjust treatments as needed Glaucoma Continue baseline eyedrops Hyperlipidemia Continue present treatment Follow as an outpatient History of pulmonary embolism Continue baseline treatment of Xarelto DVT prophylaxis Xarelto Discharge Planning: Pending clinical improvement. Likely 1-2 more days. May need home oxygen.
[2018-06-25] MEDS: Azithromycin Inj 250 MG in Sodium Chlor 0.9% Inj 250 ML IV.SIG SCH (17:00)
[2018-06-25] MEDS: Rivaroxaban 15 MG Tablet PO SCH (17:55)
--- NOTE | 2018-06-25 18:30 | ECHRPT ---
Indication: EFFUSION CONCLUSIONS The left ventricular systolic function is normal with an estimated ejection fraction in the range of 55-60%. The right ventricular systoilc function is moderately decreased. A pacemaker wire is noted in right ventricle . There is severe tricuspid regurgitation. There is estimated severe pulmonary hypertension present ( > 70 mmHg). A large left sided pleural effusion is noted. BP: / HR: Rhythm: Sinus MEASUREMENTS (Male / Female) Normal Values Technical Quality:Fair 2D ECHO LV Diastolic Diameter PLAX 4.1 cm 4.2 - 5.9 / 3.9 - 5.3 cm LV Systolic Diameter PLAX 3.2 cm IVS Diastolic Thickness 0.7 cm 0.6 - 1.0 / 0.6 - 0.9 cm LVPW Diastolic Thickness 0.7 cm 0.6 - 1.0 / 0.6 - 0.9 cm LV Relative Wall Thickness 0.4 RV Internal Dim ED PLAX 2.7 cm LA Systolic Diameter LX 3.1 cm 3.0 - 4.0 / 2.7 - 3.8 cm DOPPLER TR Peak Velocity 417.0 cm/s TR Peak Gradient 69.6 mmHg Right Atrial Pressure 10.0 mmHg Pulmonary Artery Systolic Pressu 79.6 mmHg Right Ventricular Systolic Press 79.6 mmHg FINDINGS LEFT VENTRICLE The left ventricular systolic function is normal with an estimated ejection fraction in the range of 55-60%. There is abnormal septal motion consistent with a right ventricle pacemaker. RIGHT VENTRICLE A pacemaker wire is noted in right ventricle The right ventricle is moderately dilated. The right ventricular systoilc function is moderately decreased. LEFT ATRIUM The left atrial size is normal. RIGHT ATRIUM The right atrial size is moderately dilated. MITRAL VALVE Grossly normal No mitral valve regurgitation. AORTIC VALVE No aortic valve regurgitation. No aortic valve stenosis. TRICUSPID VALVE There is severe tricuspid regurgitation. The estimated pulmonary arterial pressure is 80 mmHg. There is estimated severe pulmonary hypertension present ( > 70 mmHg). PULMONARY VALVE The pulmonary valve is not well visualized. VESSELS The inferior vena cava is dilated. PERICARDIUM A large left sided pleural effusion is noted. Joey Rockwell DO (Electronically Signed) Final Date:25 June 2018 18:29
[2018-06-25] MEDS: Latanoprost 0.005% Opth Drops 2.5 ML Bottle EACH EYE SCH (18:55)
[2018-06-26] MEDS: Acetaminophen 325 MG Tablet PO PRN ×2 (03:33→21:38)
[2018-06-26] MEDS: Lactobacillus Acidophilus/L. Spores Tablet PO SCH ×3 (08:53→17:57)
[2018-06-26] MEDS: Digoxin 125 MCG Tablet PO SCH (08:53)
--- NOTE | 2018-06-26 10:58 | XR ---
EXAM DATE: 06/26/2018 10:36 AM EST AGE/SEX: 87 years / Female INDICATIONS: Pleural effusion. CLINICAL DATA: This is the patient's initial encounter. Patient reports that signs and symptoms have been present for 3 days and indicates a pain score of 0/10. MEDICAL/SURGICAL HISTORY: Chronic obstructive pulmonary disease. Pacemaker. [place] [facility] [place]. . FINDINGS: Diffuse interstitial prominence with persistent pleural-parenchymal opacities in the lower lung zones bilaterally. Cardiomediastinal contours are stable. Remainder of the exam is unchanged. CONCLUSION: 1. Chronic interstitial lung changes with stable small right and [id number] left pleural effu sions and associated lower lobe airspace disease. Electronically signed by: Emerson De La O MD 06/26/2018 10:57 AM EST
--- NOTE | 2018-06-26 14:58 | P.DCO ---
- Diagnosis (1) Community acquired pneumonia Status: Acute (2) Pleural effusion Status: Acute (3) Hypoxia Status: Acute - Physical Therapy Order: Evaluate and treat, Improve ambulation, Strength and gait training - Home Health Nursing Order: Medical education, Signs/symptoms of disease process, Oxygen administration education, Medication education-adverse effect - Case Management Consult Case Management Consult-Home Health: Yes - Certification I have seen patient Saundra Cochran on 06/26/18. My clinical findings support the need for the requested home health care services because: Limited mobility due to disease progression, Patient has SOB, Deconditioned with increased weakness I certify that my clinical findings support that this patient is homebound because: Hx COPD - exertion dyspnea/weakness (1) Community acquired pneumonia Qualifiers: Laterality: left Lung location: lower lobe of lung Qualified Code(s): J18.1 - Lobar pneumonia, unspecified organism
--- NOTE | 2018-06-26 15:07 | P.DS ---
Date of admission: 06/23/18 17:07 Primary care physician: Lia Funes MD Brief History from admission: Mrs. Cochran is an 87-year-old female. She comes in the hospital secondary to respiratory distress. This is been a gradual onset over the past week. She has traveled from [place] to [place] recently. Prior history of PE is present but CTA shows no evidence of clot. She does report [place] she had bronchitis and was prescribed cefuroxime which she has been taking. Tonight she has evidence of bilateral lower lobe consolidation suggestive of pneumonia. Additionally she has a left-sided pleural effusion which is moderate and a small right pleural effusion. No evidence of lung masses. Hypoxia was present on arrival but with oxygen she is maintaining her oxygen saturations in the 90s. No other complaints. DS: Diagnosis - Discharge Diagnosis (1) Community acquired pneumonia Status: Acute (2) Pleural effusion Status: Acute (3) Hypoxia Status: Acute DS: Medications - Discharge Medications Prescriptions: doxycycline hyclate 100 mg PO Q12HR #10 cap fluticasone-salmeterol [Advair HFA] 2 puff INHALATION Q12H 30 Days g DS: Summary - Time Spent with Patient Total time spent providing and/or coordinating discharge services: - Quality: VTE Deep Vein Thrombosis/Pulmonary Embolism Present on Admission: No Exam Vital signs: Vital Signs 06/25/18 15:49 06/25/18 15:52 06/25/18 16:00 Temperature 97.8 F Pulse Rate 78 82 Respiratory Rate 24 18 Blood Pressure 142/67 H Pulse Oximetry 92 L Pulse Oximetry [Resting on Room Air] 87 L Pulse Oximetry [Resting with Oxygen] 91 L 06/25/18 19:25 06/26/18 00:15 06/26/18 04:00 Temperature 98.7 F 98.9 F 97.4 F L Pulse Rate 56 L 73 73 Respiratory Rate 18 19 18 Blood Pressure 156/72 H 161/74 H 116/57 L Pulse Oximetry 95 96 95 Pulse Oximetry [Resting on Room Air] Pulse Oximetry [Resting with Oxygen] 06/26/18 08:00 06/26/18 09:13 06/26/18 12:00 Temperature 98 F 97.8 F Pulse Rate 77 75 Respiratory Rate 20 20 Blood Pressure 137/78 137/74 Pulse Oximetry 94 L 96 98 Pulse Oximetry [Resting on Room Air] Pulse Oximetry [Resting with Oxygen] 06/26/18 12:53 Temperature Pulse Rate Respiratory Rate Blood Pressure Pulse Oximetry Pulse Oximetry [Resting on Room Air] 88 L Pulse Oximetry [Resting with Oxygen] 92 L Intake & Output 06/25/18 06/26/18 06/26/18 18:59 06:59 18:59 Intake Total 580 / 580 450 / 450 Balance 580 / 580 450 / 450 Weight 57.8 kg Intake: IV 100 / 100 Rocephin Inj 1,000 MG In NS Inj 100 / 100 100 ML @ 200 mls/hr IV.SIG Q24H JUANPABLO Rx#:[id number] Oral 480 / 480 450 / 450 Other: # Voids 4 3 Date of Last Bowel Movement 06/23/18 06/23/18 06/25/18 # Bowel Movements 0 3 Results - Impressions ITS Impressions Chest CTA 06/23/18 11:52 CONCLUSION: 1. No evidence for pulmonary artery embolism through the proximal segmental level. More distal segmental and subsegmental branches are suboptimally visualized. 2. Chronic interstitial lung disease with prominent centrilobular emphysema. 3. Small right and moderate left pleural effusions with associated airspace consolidation in the lower lobes. This is somewhat more confluent in the left lower lobe. Consider aspiration in the appropriate clinical setting. 4. Cardiomegaly. 5. Coronary artery calcifications. Head CT 06/23/18 11:52 CONCLUSION: 1. Senescent changes with remote right basal ganglia lacunar infarct. 2. No acute intracranial abnormality. . Chest X-Ray 06/26/18 00:00 CONCLUSION: 1. Chronic interstitial lung changes with stable small right and small-to- moderate left pleural effusions and associated lower lobe airspace disease. Discharge Plan - Discharge Condition Condition: Stable - Physicians Team Primary Care Provider: Lia Funes Attending Provider: Rowena Sarah
--- NOTE | 2018-06-26 15:08 | P.PNIM ---
Subjective Interval history: Patient reports she is feeling better. She failed the oxygen walk test. No chest pain. Cough is better. DW daughter at bedside. Physical Exam Vital signs: Vital Signs 06/25/18 15:49 06/25/18 15:52 06/25/18 16:00 Temperature 97.8 F Pulse Rate 78 82 Respiratory Rate 24 18 Blood Pressure 142/67 H Pulse Oximetry 92 L Pulse Oximetry [Resting on Room Air] 87 L Pulse Oximetry [Resting with Oxygen] 91 L 06/25/18 19:25 06/26/18 00:15 06/26/18 04:00 Temperature 98.7 F 98.9 F 97.4 F L Pulse Rate 56 L 73 73 Respiratory Rate 18 19 18 Blood Pressure 156/72 H 161/74 H 116/57 L Pulse Oximetry 95 96 95 Pulse Oximetry [Resting on Room Air] Pulse Oximetry [Resting with Oxygen] 06/26/18 08:00 06/26/18 09:13 06/26/18 12:00 Temperature 98 F 97.8 F Pulse Rate 77 75 Respiratory Rate 20 20 Blood Pressure 137/78 137/74 Pulse Oximetry 94 L 96 98 Pulse Oximetry [Resting on Room Air] Pulse Oximetry [Resting with Oxygen] 06/26/18 12:53 Temperature Pulse Rate Respiratory Rate Blood Pressure Pulse Oximetry Pulse Oximetry [Resting on Room Air] 88 L Pulse Oximetry [Resting with Oxygen] 92 L Intake & Output 06/25/18 06/26/18 06/26/18 18:59 06:59 18:59 Intake Total 580 / 580 450 / 450 Balance 580 / 580 450 / 450 Weight 57.8 kg Intake: IV 100 / 100 Rocephin Inj 1,000 MG In NS Inj 100 / 100 100 ML @ 200 mls/hr IV.SIG Q24H JUANPABLO Rx#:[id number] Oral 480 / 480 450 / 450 Other: # Voids 4 3 Date of Last Bowel Movement 06/23/18 06/23/18 06/25/18 # Bowel Movements 0 3 Narrative: GENERAL: Elderly female in no acute distress. CARDIOVASCULAR: Regular rate and rhythm without murmurs, gallops, or rubs. RESPIRATORY: Breath sounds equal bilaterally. No accessory muscle use. Faint crackles at the bases bilaterally. GASTROINTESTINAL: Abdomen soft, non-tender, nondistended. NEURO: No focal neurological deficits. Results - Labs CBC & Chem 7: 11/26/18 06:33 06/25/18 06:33 - Imaging Impressions Chest X-Ray 06/26/18 00:00 CONCLUSION: 1. Chronic interstitial lung changes with stable small right and small-to- moderate left pleural effusions and associated lower lobe airspace disease. Assessment and Plan - Assessment (1) Community acquired pneumonia Code(s): J18.9 - Pneumonia, unspecified organism Status: Acute (2) Pleural effusion Code(s): J90 - Pleural effusion, not elsewhere classified Status: Acute (3) Hypoxia Code(s): R09.02 - Hypoxemia Status: Acute - Plan 87-year-old female admitted secondary to hypoxia with bilateral lower lobe pneumonia. Patient had a recent fall and bruised a rib cage which probably contributed to the development of pneumonia. Per discussion with her daughter at bedside, she also has a known left lower lung lesion that was active on PET scan. She has COPD and pulmonary HTN on echo. She is improved but requires oxygen. She is reaching maximal benefit from this hospitalization and should be ready for discharge tomorrow once all DME and oxygen arranged. DANNY case management. Hypoxia Community-acquired pneumonia in a patient with known COPD Bilateral pneumonia Outpatient treatment failure Bilateral small pleural effusion discussed with daughter who denies any history of heart failure. Previously received Rocephin and Azithromycin On doxycycline and doing well. Need oxygen Continue breathing treatment, Advair. We discussed the patient's limitations. Hypertension Continue baseline treatment patient takes her own BP meds on her own schedule. Glaucoma Continue baseline eyedrops Hyperlipidemia Continue present treatment Follow as an outpatient History of pulmonary embolism Continue baseline treatment with Xarelto DVT prophylaxis Xarelto Discharge Planning: DC with home health in AM. Need oxygen and DME. DANNY patient and daughter regarding following up with PCP and pulmonology. (1) Community acquired pneumonia Qualifiers: Laterality: left Lung location: lower lobe of lung Qualified Code(s): J18.1 - Lobar pneumonia, unspecified organism
[2018-06-26] MEDS: Rivaroxaban 15 MG Tablet PO SCH (17:56)
[2018-06-26] MEDS: Latanoprost 0.005% Opth Drops 2.5 ML Bottle EACH EYE SCH (17:59)
[2018-06-27] MEDS: Budesonide-Formoterol 160/4.5 MCG 6 GM Inhaler INH SCH ×2 (09:31→21:36)
[2018-06-27] MEDS: Lactobacillus Acidophilus/L. Spores Tablet PO SCH ×3 (09:31→17:36)
--- NOTE | 2018-06-27 12:30 | ECG ---
Date Performed: 06/27/2018 Time Performed: 11:33:30 PTAGE: 87 years EKG: ELECTRONIC ATRIAL PACEMAKER MARKED LEFT AXIS DEVIATION INTRAVENTRICULAR CONDUCTION DELAY PO SSIBLE ANTERIOR MYOCARDIAL INFARCTION , OF INDETERMINATE AGE ABNORMAL ECG PREVIOUS TRACING : 11/14/2013 02.11 DOCTOR: Mayo Monsivais Interpretating Date/Time 06/27/2018 12:29:51
--- NOTE | 2018-06-27 13:10 | P.PNIM ---
Subjective Interval history: Patient says she is feeling all right. Reports pleuritic type left sided chest pain is improving slightly. Reports shortness of breath is improving. Physical Exam Vital signs: Vital Signs 06/26/18 16:00 06/26/18 17:53 06/26/18 20:00 Temperature 97.8 F 98.4 F Pulse Rate 83 90 Respiratory Rate 20 18 Blood Pressure 170/77 H 177/82 H Pulse Oximetry 94 L 92 L 91 L 06/26/18 21:02 06/27/18 00:00 06/27/18 04:00 Temperature 98.4 F 98.4 F Pulse Rate 83 83 79 Respiratory Rate 22 20 17 Blood Pressure 132/75 160/72 H Pulse Oximetry 92 L 94 L 06/27/18 08:00 06/27/18 11:01 06/27/18 12:00 Temperature 97.9 F 98.5 F Pulse Rate 80 77 Respiratory Rate 18 18 Blood Pressure 174/81 H 156/73 H Pulse Oximetry 94 L 94 L 96 Intake & Output 06/26/18 06/27/18 06/27/18 18:59 06:59 18:59 Intake Total 1610 / 1610 Output Total Balance 1609 / 1609 Weight 57.8 kg Intake: Oral 1610 / 1610 Output: Stool Other: # Voids 4 3 Date of Last Bowel Movement 06/26/18 06/26/18 06/26/18 Narrative: GENERAL: Patient sitting up in bed. Appears comfortable. SKIN: Warm and dry. HEAD: Normocephalic. EYES: No scleral icterus. No injection or drainage. NECK: Supple, trachea midline. No JVD. CARDIOVASCULAR: Regular rate and rhythm without murmurs, gallops, or rubs. RESPIRATORY: Crackles in bases bilaterally. No accessory muscle use. GASTROINTESTINAL: Abdomen soft, non-tender, nondistended. MUSCULOSKELETAL: No cyanosis, or edema. BACK: Nontender without obvious deformity. No CVA tenderness. Results - Labs CBC & Chem 7: 06/25/18 06:33 06/25/18 06:33 Assessment and Plan - Assessment (1) Community acquired pneumonia Code(s): J18.9 - Pneumonia, unspecified organism Status: Acute (2) Pleural effusion Code(s): J90 - Pleural effusion, not elsewhere classified Status: Acute (3) Hypoxia Code(s): R09.02 - Hypoxemia Status: Acute - Plan 87-year-old female admitted secondary to hypoxia with bilateral lower lobe pneumonia. Patient had a recent fall and bruised a rib cage which probably contributed to the development of pneumonia. Per discussion with her daughter at bedside, she also has a known left lower lung lesion that was active on PET scan. She has COPD and pulmonary HTN on echo. She is improved but requires oxygen. She is reaching maximal benefit from this hospitalization and should be ready for discharge tomorrow once all DME and oxygen arranged. DW case management. Hypoxia Community-acquired pneumonia in a patient with known COPD Bilateral pneumonia Outpatient treatment failure Bilateral small pleural effusion discussed with daughter who denies any history of heart failure. Previously received Rocephin and Azithromycin On doxycycline and doing well. Need oxygen Continue breathing treatment, Advair. We discussed the patient's limitations. = Suspected severe pulmonary hypertension Severe tricuspid regurgitation. -Likely secondary to chronic COPD. -Echo reviewed. Order EKG which is paced. -We discussed interventions such as increasing blood pressure medication. Patient and daughter indicate that they want to focus more on quality and quantity of life and do not want invasive testing or treatments at this time. Will order follow-up with cardiology as outpatient. Hypertension Continue baseline treatment patient takes her own BP meds on her own schedule. Glaucoma Continue baseline eyedrops Hyperlipidemia Continue present treatment Follow as an outpatient History of pulmonary embolism Continue baseline treatment with Xarelto DVT prophylaxis Xarelto Discussed Condition With: Patient, nurse, daughter at bedside Discharge Planning: DC with home health. Need oxygen and DME. DW patient and daughter regarding following up with PCP, cardiology, and pulmonology. (1) Community acquired pneumonia Qualifiers: Laterality: left Lung location: lower lobe of lung Qualified Code(s): J18.1 - Lobar pneumonia, unspecified organism
--- NOTE | 2018-06-27 13:12 | P.DS ---
Date of admission: 06/23/18 17:07 Primary care physician: Lia Funes MD DS: Diagnosis - Discharge Diagnosis (1) Community acquired pneumonia Status: Acute (2) Pleural effusion Status: Acute (3) Hypoxia Status: Acute DS: Medications - Discharge Medications Prescriptions: doxycycline hyclate 100 mg PO Q12HR #10 cap fluticasone-salmeterol [Advair HFA] 2 puff INHALATION Q12H 30 Days g DS: Summary Hospital Course: 87-year-old female admitted secondary to hypoxia with bilateral lower lobe pneumonia. Patient had a recent fall and bruised a rib cage which probably contributed to the development of pneumonia. Per discussion with her daughter at bedside, she also has a known left lower lung lesion that was active on PET scan. She has COPD and pulmonary HTN on echo. She is improved but requires oxygen. She is reaching maximal benefit from this hospitalization and should be ready for discharge tomorrow once all DME and oxygen arranged. DW case management. Hypoxia Community-acquired pneumonia in a patient with known COPD Bilateral pneumonia Outpatient treatment failure Bilateral small pleural effusion discussed with daughter who denies any history of heart failure. Previously received Rocephin and Azithromycin On doxycycline and doing well. Need oxygen Continue breathing treatment, Advair. We discussed the patient's limitations. = Suspected severe pulmonary hypertension Severe tricuspid regurgitation. -Likely secondary to chronic COPD. -Echo reviewed. Order EKG which is paced. -We discussed interventions such as increasing blood pressure medication. Patient and daughter indicate that they want to focus more on quality and quantity of life and do not want invasive testing or treatments at this time. Will order follow-up with cardiology as outpatient. Hypertension Continue baseline treatment patient takes her own BP meds on her own schedule. Glaucoma Continue baseline eyedrops Hyperlipidemia Continue present treatment Follow as an outpatient History of pulmonary embolism Continue baseline treatment with Xarelto DVT prophylaxis Xarelto Discussed Condition With: Patient, nurse, daughter at bedside Discharge Planning: DC with home health. Need oxygen and DME. DW patient and daughter regarding following up with PCP, cardiology, and pulmonology. - Time Spent with Patient Total time spent providing and/or coordinating discharge services: Greater than 30 minutes - Quality: VTE Deep Vein Thrombosis/Pulmonary Embolism Present on Admission: No Exam Vital signs: Vital Signs 06/26/18 16:00 06/26/18 17:53 06/26/18 20:00 Temperature 97.8 F 98.4 F Pulse Rate 83 90 Respiratory Rate 20 18 Blood Pressure 170/77 H 177/82 H Pulse Oximetry 94 L 92 L 91 L 06/26/18 21:02 06/27/18 00:00 06/27/18 04:00 Temperature 98.4 F 98.4 F Pulse Rate 83 83 79 Respiratory Rate 22 20 17 Blood Pressure 132/75 160/72 H Pulse Oximetry 92 L 94 L 06/27/18 08:00 06/27/18 11:01 06/27/18 12:00 Temperature 97.9 F 98.5 F Pulse Rate 80 77 Respiratory Rate 18 18 Blood Pressure 174/81 H 156/73 H Pulse Oximetry 94 L 94 L 96 Intake & Output 06/26/18 06/27/18 06/27/18 18:59 06:59 18:59 Intake Total 1610 / 1610 Output Total Balance 1609 / 1609 Weight 57.8 kg Intake: Oral 1610 / 1610 Output: Stool Other: # Voids 4 3 Date of Last Bowel Movement 06/26/18 06/26/18 06/26/18 Results Procedures completed during hospitalization: No invasive procedures. - Impressions ITS Impressions Chest CTA 06/23/18 11:52 CONCLUSION: 1. No evidence for pulmonary artery embolism through the proximal segmental level. More distal segmental and subsegmental branches are suboptimally visualized. 2. Chronic interstitial lung disease with prominent centrilobular emphysema. 3. Small right and moderate left pleural effusions with associated airspace consolidation in the lower lobes. This is somewhat more confluent in the left lower lobe. Consider aspiration in the appropriate clinical setting. 4. Cardiomegaly. 5. Coronary artery calcifications. Head CT 06/23/18 11:52 CONCLUSION: 1. Senescent changes with remote right basal ganglia lacunar infarct. 2. No acute intracranial abnormality. . Chest X-Ray 06/26/18 00:00 CONCLUSION: 1. Chronic interstitial lung changes with stable small right and small-to- moderate left pleural effusions and associated lower lobe airspace disease. Discharge Plan - Discharge Disposition Patient Disposition: /Home Health Service - Discharge Condition Condition: Stable - Discharge Order Discharge Orders: Discharge Order (Routine); Ordered 06/27/18 Ordered By: Eros Hooker - Discharge Details Anticipated Discharge Date: 06/27/18 - Physicians Team Primary Care Provider: Lia Funes Attending Provider: Eros Hooker
[2018-06-27] MEDS: Acetaminophen 325 MG Tablet PO PRN ×2 (14:28→21:45)
[2018-06-27] MEDS: Rivaroxaban 15 MG Tablet PO SCH (17:36)
[2018-06-27] MEDS: Latanoprost 0.005% Opth Drops 2.5 ML Bottle EACH EYE SCH (17:37)
[2018-06-28 05:50] VITALS: O2SAT 96
[2018-06-28 08:38] VITALS: RESP 20
[2018-06-28 08:58] VITALS: BP 170/80; PULSE 83; TEMP 98
[2018-06-28] MEDS: Digoxin 125 MCG Tablet PO SCH (10:14)
[2018-06-28] MEDS: Budesonide-Formoterol 160/4.5 MCG 6 GM Inhaler INH SCH (10:15)
[2018-06-28] MEDS: Lactobacillus Acidophilus/L. Spores Tablet PO SCH ×2 (10:16→12:13)
== END 2018-06-28 12:37 | disposition home health service (06) ==
LOC: NEPE 11:32 → NEDA 17:07 → N05 18:44
PROVIDERS: ADMIT Internal Medicine; ATTEND Internal Medicine